=== PATIENT | male | born 1995 | race African-American/Black ===

== ENCOUNTER 2017-02-12 15:01 | Emergency (ER) | payer OTHER, MEDICAID ==
[~2017-02-12] VITALS: Ht 182.9 cm; Wt 68.0 kg
[2017-02-12 15:18] VITALS: BP 130/82
[2017-02-12] MEDS ORDERED: KETOROLAC TROMETH 60MG/2ML VIAL IM ONE (15:30)
== END 2017-02-12 17:05 | disposition home or self-care (01) ==
LOC: EDBD 15:01 → EDUNIT# 15:01 → ER 15:07
DX: S16.1XXA Strain of muscle, fascia and tendon at neck level, initial encounter (principal); S00.33XA Contusion of nose, initial encounter; V43.52XA Car driver injured in collision with other type car in traffic accident, initial encounter; Y93.89 Activity, other specified; Y99.8 Other external cause status; R42 Dizziness and giddiness; Y92.89 Other specified places as the place of occurrence of the external cause
CPT/HCPCS: 70160; 72040; 96372; 99284; J1885